=== PATIENT | male | born 1995 | race American Indian/Alaskan Native ===

== ENCOUNTER 2019-01-06 15:51 | Emergency (ER) | payer SELFPAY ==
[2019-01-06 16:09] VITALS: BP 119/74
== END 2019-01-06 18:00 | disposition home or self-care (01) ==
LOC: ED 15:51
DX: Z11.3 Encounter for screening for infections with a predominantly sexual mode of transmission (principal)

== ENCOUNTER 2019-04-23 02:41 | Emergency (ER) | payer SELFPAY ==
[2019-04-23 02:46] VITALS: BP 128/78
--- NOTE | 2019-04-23 06:41 | Emergency Department Report ---
Chief Complaint: Dental/Oral Stated Complaint: TOOTHACHE Time Seen by Provider: 04/23/19 06:37 - HPI History of Present Illness: 24-year-old -N[place]alese male presents to the emergency room complaining of tooth pain for 1 week after having veneers adjusted. Patient states he has been taken ibuprofen without much relief. Patient has not followed back up with his dentist who placed the veneers. Patient denies any swelling to his mouth no nausea no vomiting no fever - Exam Vital Signs: Vital Signs 04/23/19 02:45 Temperature 98.4 F Pulse Rate 57 L Respiratory 18 Rate Blood Pressure 128/78 O2 Sat by Pulse 100 Oximetry Physical Exam: Patient is alert and oriented appears to be agitated. Mouth: Oral mucosa is moist no done enlargement no gum bleeding no abscesses to appreciate. Psych. Patient anxious and yelling at staff. Patient is able to ambulate without difficulties. MSE screening note: Focused history and physical exam performed. Due to findings the following was ordered: 24-year-old -N[place]alese male presents to the emergency room complaining of tooth pain for 1 week after having veneers adjusted. Patient states he has been taken ibuprofen without much relief. Patient has not followed back up with his dentist who placed the veneers. Patient denies any swelling to his mouth no nausea no vomiting no fever. I discussed with patient that we were only able to recommend Tylenol or ibuprofen or Aleve for pain management. Patient at that time start yelling unnoted guys Perks in the back. Patient is referring to Percocets. I discussed that patient is to follow back up with his dentist which was reported that he has an appointment on Wednesday. ED Disposition for MSE Condition: Stable Referrals: PRIMARY CARE, [Primary Care Provider] - 3-5 Days
== END 2019-04-23 07:10 | disposition left against medical advice (07) ==
LOC: ED 02:41
DX: K08.89 Other specified disorders of teeth and supporting structures (principal); Z53.21 Procedure and treatment not carried out due to patient leaving prior to being seen by health care provider

== ENCOUNTER 2019-06-04 16:33 | Emergency (ER) | payer SELFPAY ==
[2019-06-04] MEDS ORDERED: KETOROLAC 30 MG/1 ML INJ IV ONE (16:55)
[2019-06-04] MEDS ORDERED: MORPHINE 4 MG/1 ML INJ IV ONE (16:55)
[2019-06-04] MEDS ORDERED: ETOMIDATE 20 MG/10 ML INJ IV ONE ×2 (17:09→17:39)
--- NOTE | 2019-06-04 17:20 | XRay Report ---
LEFT SHOULDER 2 VIEWS INDICATION / CLINICAL INFORMATION: left shoulder dislocation/injury. COMPARISON: None available. FINDINGS: Positioning is suboptimal due to an elbow dislocation. I do not believe that there is a skeletal abno rmality in the shoulder on these images Signer Name: Chris Robertson MD FACMark Signed: 06/04/2019 5:16 PM Workstation Name: [id number]
--- NOTE | 2019-06-04 17:20 | XRay Report ---
LEFT ELBOW 2 VIEWS INDICATION / CLINICAL INFORMATION: pain after fall. COMPARISON: None available. FINDINGS: Complete dislocation of the humerus relative to the radius and ulna. No definite fracture is seen. Signer Name: Chris Robertson MD FACMark Signed: 06/04/2019 5:15 PM Workstation Name: [id number]
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
--- NOTE | 2019-06-04 18:06 | XRay Report ---
LEFT ELBOW 2 VIEWS POSTREDUCTION INDICATION / CLINICAL INFORMATION: post reduction elbow dislocation. COMPARISON: None available. FINDINGS: The humerus appears to have been relocated relative to the ulna and the radius. No definite fracture is seen Signer Name: Chris Robertson MD FACMark Signed: 06/04/2019 6:01 PM Workstation Name: [id number]
[2019-06-04 19:46] VITALS: BP 133/84
== END 2019-06-04 18:15 | disposition home or self-care (01) ==
LOC: ED 16:33
DX: S53.105A Unspecified dislocation of left ulnohumeral joint, initial encounter (principal); X58.XXXA Exposure to other specified factors, initial encounter; Y93.89 Activity, other specified; Y92.89 Other specified places as the place of occurrence of the external cause; Y99.8 Other external cause status
CPT/HCPCS: 24600; 73030; 73070; 96374; 96375; 99284; J1885; J2270